=== PATIENT | female | born 1995 | race Caucasian/White ===

== ENCOUNTER 2020-06-08 17:21 | Emergency (ER) | payer BC, SELFPAY ==
[2020-06-08 17:33] VITALS: BP 119/75; PULSE 95; RESP 16; TEMP 36.8; O2SAT 98
--- NOTE | 2020-06-08 17:41 | ED.CHESTPAIN ---
HPI - Chest Pain General Chief Complaint: Chest Pain Stated Complaint: chest pain/sob Time Seen by Provider: 06/08/20 17:41 Source: patient and RN notes reviewed Mode of arrival: ambulatory Limitations: no limitations History of Present Illness HPI narrative: This is a 24 years old female presented office for evaluation of constant chest tightness for the last 3-day. Associate with shortness of breath especially when she wear a mask. Symptom has exacerbated her celiac disease which problem her to throw up. She admits to working alot more than she used to. She admits to history of anxiety and PTSD. She knows what anxiety feel like; however she thought her symptoms were different this time. Denies fever. Denies sick contact. She works at the [employer]. She calls her doctor office this morning; which they have not called her back. Related Data Home Medications Medication Instructions Recorded Confirmed atomoxetine PO 12/06/19 05/03/20 lamotrigine 12/06/19 05/03/20 quetiapine 12/06/19 05/03/20 Allergies Allergy/AdvReac Type Severity Reaction Status Date / Time gluten Allergy Unknown Unknown Verified 05/11/20 13:25 WHEAT STARCH Allergy Unknown CILIAC Uncoded 05/11/20 13:25 DISEASE Review of Systems Review of Systems: Narrative: CONSTITUTIONAL: Denies fever, chills ENT: Denies rhinorrhea, congestion, sore throat, otalgia. CARDIOVASCULAR: Denies edema or palpitation. Reports chest tightness RESPIRATORY: Denies wheezing, cough. Reports tightness in her chest with prompt her to feel shortness of breathe GASTROINTESTINAL: Denies abdominal pain, nausea, diarrhea. Reports vomiting once. Denies bloody stools/vomits GENITOURINARY: Denies urinary symptoms or discharge SKIN: Denies rash MUSCULOSKELETAL: Denies acute back pain NEUROLOGIC: Denies lightheaded All other systems reviewed are negative, except as documented in HPI. [facility] Past Medical History Medical History Anxiety PTSD (post-traumatic stress disorder) Family History Family History Grandparent Family history of malignant neoplasm of breast Social History Social History Smoking status: Never smoker Alcohol intake: never Gender identity (if verbalized by the patient): Female Comments At time of signature, I agree with nursing past medical, surgical, social and family history. There is no relevant family history pertinent to the presenting complaint. Exam Narrative: Exam Narrative: GENERAL: This is a well-nourished, well-developed patient, in no apparent distress. EYES: PERRL. EMOI. Sclera clear/white. Vision is grossly intact. EARS: External ears normal, auditory canals clear and without drainage, TMs normal without perforation. Hearing grossly intact. NOSE: External nose normal with no obvious nasal discharge, nares without redness, no rhinorrhea. THROAT: Mucous membranes moist, posterior pharynx clear. NECK: Neck supple, non-tender without lymphadenopathy, masses or thyromegaly. CARDIOVASCULAR: Regular rate and rhythm without murmurs, gallops, or rubs. RESPIRATORY: Clear to auscultation. Breath sounds equal bilaterally. No wheezes, rales, or rhonchi. GASTROINTESTINAL: Abdomen soft, non-tender, nondistended. Bowel sounds are active. No hepato-splenomegaly, or palpable masses. No guarding. SKIN: warm, intact with no suspicious lesions or rash, good texture and turgor. NEURO: awake, alert, and oriented to person, place and time. There were no obvious focal neurologic abnormalities. Steady gait EXTREMITIES: Normal range of motion. No edema. [place] Coma Scale Eye Opening: Spontaneous 4 Agustin Coma Scale Motor: Obeys Commands 6 Agustin Coma Scale Verbal: Oriented 5 Course Vital Signs Vital signs: Vital Signs Temperature 98.2 F 06/08/20 17:33 Pulse Rate 95 06/08/20 17:33
--- NOTE | 2020-06-08 17:58 | ECG_ITS ---
Measurements Intervals [place] Rate: 84 P: 64 DE: 139 QRS: 76 QRSD: 85 T: 51 QT: 354 QTc: 421 Interpretive Statements SINUS RHYTHM WITH SINUS ARRHYTHMIA RSR' IN V1 OR V2, PROBABLY NORMAL VARIANT BASELINE ARTIFACT- II, III, AVF BORDERLINE ECG Electronically Signed On 06-08-2020 18:17:34 CDT by Timbo Chambers D.O.
== END 2020-06-08 18:05 | disposition home or self-care (01) ==
PROVIDERS: Emergency Provider Nurse Practitioner; PCP Family Medicine
DX: F41.9 Anxiety disorder, unspecified (principal)
CPT/HCPCS: 93005; 99213; G0463

== ENCOUNTER → 2020-08-03 14:18 | Outpatient (CLI) | payer BC, SELFPAY ==
--- NOTE | ~2020-08-03 | XR_ITS ---
XR ankle LT 2V, XR foot LT 2V 08/03/2020 15:04 Indication: Multiple joint pain Procedure: 2 views left ankle and 2 views left foot Comparison: No prior studies for comparison. Findings: No fracture, subluxation or dislocation. Ankle mortise intact. No significant soft tissue a bnormality. No radiopaque foreign bodies. Talar dome is normal. No erosive changes. No significant chrissie int space narrowing. Impression: 1: No significant bone or joint abnormality. Reviewed, dictated and finalized at location A. Impression: 1: No significant bone or joint abnormality. Impression: 1: No significant bone or joint abnormality.
--- NOTE | ~2020-08-03 | XR_ITS ---
EXAMINATION: XR wrist RT 2V EXAM DATE: 08/03/2020 15:04 INDICATION: Multijoint pain. TECHNIQUE: Frontal and lateral projections of the right wrist. There is no prior study for comparis on. FINDINGS: There are no acute right wrist fractures or dislocations identified. There are no bony eros ions identified. Scapholunate joint space is maintained. There is no subcutaneous gas. The soft tiss ue is unremarkable. There are no radiopaque foreign bodies. IMPRESSION: 1. Unremarkable XR wrist RT 2V exam. Reviewed, dictated and finalized at location G.
--- NOTE | ~2020-08-03 | XR_ITS ---
EXAMINATION: XR hand LT 2V EXAM DATE: 08/03/2020 15:04 INDICATION: Multijoint pain. TECHNIQUE: Frontal and lateral projections of the left hand. There is no prior study for comparison . FINDINGS: There are no bony erosions identified. There are no acute left hand fractures or dislocati ons identified. There is no subcutaneous gas. The soft tissue is unremarkable. There are no radio paque foreign bodies. IMPRESSION: 1. Unremarkable XR hand LT 2V exam. Reviewed, dictated and finalized at location G.
--- NOTE | ~2020-08-03 | XR_ITS ---
EXAMINATION: XR hand RT 2V EXAM DATE: 08/03/2020 15:04 INDICATION: Multijoint pain TECHNIQUE: Frontal and lateral projections of the right hand. There is no prior study for compariso n. FINDINGS: There are no bony erosions identified. There are no acute right hand fractures or disloca tions identified. There is no subcutaneous gas. The soft tissue is unremarkable. There are no rad iopaque foreign bodies. IMPRESSION: 1. Unremarkable XR hand RT 2V exam. Reviewed, dictated and finalized at location G.
--- NOTE | ~2020-08-03 | XR_ITS ---
EXAMINATION: XR sacroiliac joints min 3V EXAM DATE: 08/03/2020 15:04 INDICATION: No known recent injury provided at this time. Pain of the sacroiliac joints. Multi joint pain. TECHNIQUE: Frontal, bilateral oblique projections of the sacroiliac joints. There is no prior study for comparison. FINDINGS: The sacroiliac joints are symmetric. Sacrum, sacroiliac joints, sacral arcuate lines are i ntact. There are no bony erosions identified. There are no acute fractures or dislocations identified . There is no subcutaneous gas. The soft tissue is unremarkable. IUD projecting over central aspe ct of pelvis. IMPRESSION: 1. Unremarkable XR sacroiliac joints min 3V exam. Reviewed, dictated and finalized at location G.
--- NOTE | ~2020-08-03 | XR_ITS ---
EXAMINATION: XR wrist LT 2V EXAM DATE: 08/03/2020 15:04 INDICATION: Multijoint pain. TECHNIQUE: Frontal and lateral projections of the left wrist. There is no prior study for compariso n. FINDINGS: There are no bony erosions identified. There are no acute left wrist fractures or dislocat ions identified. There is no subcutaneous gas. The soft tissue is unremarkable. There are no radi opaque foreign bodies. IMPRESSION: 1. Unremarkable XR wrist LT 2V exam. Reviewed, dictated and finalized at location G.
--- NOTE | ~2020-08-03 | XR_ITS ---
XR ankle RT 2V, XR foot RT 2V 08/03/2020 15:04 Indication: Polyarticular joint pain Procedure: 2 views right ankle and 2 views right foot Comparison: No prior studies for comparison. Findings: Normal alignment. No fracture or traumatic malalignment. No significant joint space narrowi ng. No soft tissue abnormalities. Lisfranc joint intact. Impression: 1: No significant bone or joint abnormality. Reviewed, dictated and finalized at location A. Impression: 1: No significant bone or joint abnormality. Impression: 1: No significant bone or joint abnormality.
== END ==
PROVIDERS: PCP Family Medicine; Visit Provider Internal Medicine Rheumatology
DX: M25.50 Pain in unspecified joint (principal)
CPT/HCPCS: 72202; 73100; 73120; 73600; 73620

== ENCOUNTER 2021-10-15 11:14 | Emergency (ER) | payer BC, SELFPAY ==
--- NOTE | ~2021-10-15 | XR_ITS ---
EXAMINATION: XR hand RT min 3V DATE: 10/15/2021 11:45 INDICATION: Posttraumatic pain and limited range of motion at the distal right fourth finger. TECHNIQUE: Posteroanterior, oblique and lateral views of the right checkerer hand were obtained. COMPARISON: None. FINDINGS: Alignment is normal. No fracture. Joint spaces are normal. Soft tissues are unremarkable. IMPRESSION: 1. Negative right hand radiographs. Reviewed, dictated and finalized at location A. [employer]
[2021-10-15 11:35] VITALS: BP 106/62; PULSE 68; RESP 16; TEMP 36.8; O2SAT 99
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
== END 2021-10-15 12:24 | disposition home or self-care (01) ==
PROVIDERS: Emergency Provider Emergency Medicine; PCP Family Medicine
DX: S63.91XA Sprain of unspecified part of right wrist and hand, initial encounter (principal); W22.09XA Striking against other stationary object, initial encounter; Y93.55 Activity, bike riding
CPT/HCPCS: 73130; 99213; G0463

== ENCOUNTER 2024-08-08 10:37 | Outpatient (CLI) | payer BC, SELFPAY ==
--- NOTE | ~2024-08-08 | XR_ITS ---
XR knee LT 3V 08/08/2024 10:57 Indication: Left knee pain Procedure: 3 views left knee Comparison: No prior studies for comparison. Findings: There is anatomic alignment. No fracture, subluxation or dislocation. No significant joint effusion. No foreign bodies. Impression: 1: No significant bone or joint abnormality. Reviewed, dictated and finalized at location B. Impression: 1: No significant bone or joint abnormality.
--- NOTE | ~2024-08-08 | XR_ITS ---
XR knee RT 3V 08/08/2024 10:57 INDICATION: Right knee pain PROCEDURE: 3 views right knee COMPARISON: No prior studies for comparison. FINDINGS: Fracture, dislocation or subluxation is not identified. No significant joint effusion. The soft tissues appear within normal limits. No foreign bodies are identified. IMPRESSION: 1: NO ACUTE BONE OR JOINT ABNORMALITY IDENTIFIED. Reviewed, dictated and finalized at location B.
== END 2024-08-08 10:38 | disposition home or self-care (01) ==
PROVIDERS: PCP Family Medicine; Visit Provider Nurse Practitioner Family
DX: M25.569 Pain in unspecified knee (principal)
CPT/HCPCS: 73562

== ENCOUNTER 2024-08-28 09:30 | Outpatient (CLI) | payer BC, SELFPAY ==
--- NOTE | ~2024-08-28 | MR_ITS ---
MRI of the brain Clinical History: Dizziness and giddiness Technique: Axial and sagittal T1-weighted images were acquired. These were followed by axial T2-weigh valerie, diffusion weighted, gradient, and FLAIR images. Findings: No abnormal signal seen in the brain parenchyma. No acute infarct, intracranial hemorrhage, or mass lesion. Ventricles and subarachnoid spaces are unremarkable. Orbits are unremarkable. Paranasal sinuses and m astoid air cells are clear. Major intracranial flow voids are intact. Sagittal midline structures are intact. IMPRESSION: Unremarkable exam. Reviewed, dictated and finalized at location M. IMPRESSION: Unremarkable exam.
== END 2024-08-28 09:31 | disposition home or self-care (01) ==
PROVIDERS: PCP Family Medicine; Visit Provider Nurse Practitioner Family
DX: R42 Dizziness and giddiness (principal)
CPT/HCPCS: 70551

== ENCOUNTER 2024-10-21 15:09 | Outpatient (CLI) | payer BC, SELFPAY ==
--- NOTE | 2024-10-31 09:08 | WPDHOLTEREM ---
Holter/Event Monitor Holter/Event Monitor Date of procedure: 10/21/24 Holter/Event Procedure: 3-7 Day Holter Monitor Indications: Palpitations Conclusion: 1. 3 days holter on 10/21/24. 2. Underlying rhythm is sinus rhythm. HR range 52-168 bpm; average HR 88 bpm. HR at 168 bpm on 10/22/24 at 4:50 pm. 3. No premature supraventricular complexes. No supraventricular tachycardia. 4. There are rare premature ventricular complexes. No ventricular tachycardia. 5. No significant pauses greater than 2 seconds. 6. Patient reports 5 episodes of symptoms of chest pain, lightheadedness, flutter/racing, shortness of breath demonstrate sinus rhythm, HR range 70-96 bpm.
== END 2024-10-21 15:10 | disposition home or self-care (01) ==
PROVIDERS: PCP Family Medicine; Visit Provider Physician Assistant Medical
DX: R00.2 Palpitations (principal); R42 Dizziness and giddiness
CPT/HCPCS: 93242